=== PATIENT | male | born 1995 | race American Indian/Alaskan Native ===

== ENCOUNTER 2020-01-06 12:36 | Emergency (ER) | payer SELFPAY ==
--- NOTE | 2020-01-06 13:34 | RAD REPORT ---
EXAM DESCRIPTION: RAD - Hand Right 3 View - 01/06/2020 1:24 pm CLINICAL HISTORY: Pain;Swelling COMPARISON: No comparisons FINDINGS: An oblique fracture is present through the head of the fifth metacarpal. Fracture line abrams s involve the ulnar side of the MCP joint articular surface. Several small fracture fragments are pre sent along the main fracture line. There is radial side displacement of the distal fracture fragment. Minimal angulation deformity is present. Fifth digit phalanges are intact. No other fracture changes identifiable. No foreign body. IMPRESSION: Right fifth metacarpal fracture as detailed.
--- NOTE | 2020-01-06 13:35 | RAD REPORT ---
EXAM DESCRIPTION: CT - Head Brain Wo Cont - 01/06/2020 1:24 pm CLINICAL HISTORY: TRAUMAfall from ladder, head trauma COMPARISON: No comparisons TECHNIQUE: Axial 5 mm thick images of the head were obtained without IV contrast. All CT scans are performed using dose optimization technique as appropriate and may include automated exposure control or mA/KV adjustment according to patient size. FINDINGS: No intracranial hemorrhage, mass, edema or shift of mid-line structures. No acute infarcti on changes seen. No abnormal extra-axial fluid collections. Ventricles are normal. Mastoid air cells and visualized portions of the paranasal sinuses are clear. No acute bony findings. IMPRESSION: Negative non-contrast CT head examination.
--- NOTE | 2020-01-06 13:48 | EDPHYS ---
Physician Documentation [facility] Name: Estevan Melendez Age: 24 yrs Sex: Male : 1995 Arrival Date: 01/06/2020 Time: 12:39 Bed 14 Private MD: ED Physician Shaan Ngo HPI: 01/05 13:46 This 24 yrs old Other Male presents to ER via Ambulatory with complaints of Fall Injury.kb 13:46 Details of fall: The patient fell from a height, off a roof. Onset: The kb symptoms/episode began/occurred this morning. Associated injuries: The patient sustained injury to the head, hematoma, right hand, decreased range of motion, painful injury, swelling. Severity of symptoms: At their worst the symptoms were mild, moderate, in the emergency department the symptoms are unchanged. The patient has not experienced similar symptoms in the past. The patient has not recently seen a physician. Pt reports he fell off of a roof this morning and has pain, swelling and decreased ROM of right hand. Denies any other injury. States he did hit his head and had some dizziness at the time, but that is gone now. Historical: - Allergies: 13:15 No Known Allergies; iw - Home Meds: 13:15 None [Active]; iw - PMHx: 13:15 None; iw - PSHx: 13:15 right ankle; iw - Immunization history: Last tetanus immunization: unknown. - Social history:: Smoking status: Patient reports the use of cigarette tobacco products, smokes one-half pack cigarettes per day. ROS: 13:44 Constitutional: Negative for fever, chills, and weight loss, Neck: Negative for injury, kb pain, and swelling, Cardiovascular: Negative for chest pain, palpitations, and edema, Respiratory: Negative for shortness of breath, cough, wheezing, and pleuritic chest pain, Abdomen/GI: Negative for abdominal pain, nausea, vomiting, diarrhea, and constipation, Back: Negative for injury and pain, Neuro: Negative for headache, weakness, numbness, tingling, and seizure. 13:44 MS/extremity: Positive for injury or acute deformity, decreased range of motion, pain, swelling, tenderness, of the right hand. 13:44 Skin: Positive for hematoma, back of head. Exam: 13:44 Constitutional: This is a well developed, well nourished patient who is awake, alert, kb and in no acute distress. Eyes: Pupils equal round and reactive to light, extra-ocular motions intact. Lids and lashes normal. Conjunctiva and sclera are non-icteric and not injected. Cornea within normal limits. Periorbital areas with no swelling, redness, or edema. Chest/axilla: Normal chest wall appearance and motion. Nontender with no deformity. No lesions are appreciated. Cardiovascular: Regular rate and rhythm with a normal S1 and S2. No gallops, murmurs, or rubs. Normal PMI, no JVD. No pulse deficits. Respiratory: Lungs have equal breath sounds bilaterally, clear to auscultation and percussion. No rales, rhonchi or wheezes noted. No increased work of breathing, no retractions or nasal flaring. Abdomen/GI: Soft, non-tender, with normal bowel sounds. No distension or tympany. No guarding or rebound. No evidence of tenderness throughout. Skin: Warm, dry with normal turgor. Normal color with no rashes, no lesions, and no evidence of cellulitis. Neuro: Awake and alert, GCS 15, oriented to person, place, time, and situation. Cranial nerves II-XII grossly intact. Motor strength 5/5 in all extremities. Sensory grossly intact. Cerebellar exam normal. Normal gait. 13:44 Head/face: Noted is no obvious of injury or deformity except hematoma, that is mild, of the left occipital area. 13:44 Musculoskeletal/extremity: Extremities: grossly normal except: noted in the dorsum of right hand: decreased ROM, pain, swelling, tenderness, ROM: limited active range of motion, in the right hand, Circulation is intact in all extremities. Sensation intact. Vital Signs: 13:15 Resp 16; Weight 70.31 kg; Height 5 ft. 11 in. (180.34 cm); Pain 9/10; iw 13:29 BP 126 / 89; Pulse 76; Resp 19 S; Pulse Ox 97% on R/A; jl7 13:15 Body Mass Index 21.62 (70.31 kg, 180.34 cm) iw Ashley Coma Score: 13:15 Eye Response: spontaneous(4). Verbal Response: oriented(5). Motor Response: obeys iw commands(6). Total: 15. Trauma Score (Adult): 13:15 Eye Response: spontaneous(1); Verbal Response: oriented(1); Motor Response: obeys iw commands(2); Systolic BP: > 89 mm Hg(4); Respiratory Rate: 10 to 29 per min(4); Ashley Score: 15; Trauma Score: 12 MDM: 13:05 Patient medically screened. kb 13:44 Data reviewed: vital signs, nurses notes. Data interpreted: Pulse oximetry: on room air kb is 97 %. Interpretation: normal. Counseling: I had a detailed discussion with the patient and/or guardian regarding: the historical points, exam findings, and any diagnostic results supporting the discharge/admit diagnosis, radiology results, the need for outpatient follow up, a orthopedic surgeon, to return to the emergency department if symptoms worsen or persist or if there are any questions or concerns that arise at home. 01/05 13:07 Order name: CT Head Brain wo Cont; Complete Time: 13:44 kb 01/05 13:07 Order name: Hand Right 3 View XRAY; Complete Time: 13:44 kb 01/05 13:22 Order name: Ulnar Gutter splint; Complete Time: 14:08 kb Administered Medications: No medications were administered Disposition: 01/06 13:50 Co-signature as Attending Physician, Shaan Ngo MD I agree with the assessment and miracle plan of care. Disposition: 01/06/20 13:48 Discharged to Home. Impression: Displaced fracture of base of fifth metacarpal bone, right hand. - Condition is Stable. - Discharge Instructions: Metacarpal Fracture, [id number]. - Prescriptions for Diclofenac Sodium 75 mg Oral Tablet, Delayed Release (E.C.) - take 1 tablet by ORAL route 2 times per day As needed; 30 tablet. - Medication Reconciliation Form, Thank You Letter, Antibiotic Education, Prescription Opioid Use form. - Follow up: Emergency Department; When: As needed; Reason: Worsening of condition. Follow up: Private Physician; When: 2 - 3 days; Reason: Recheck today's complaints, Continuance of care, Re-evaluation by your physician. Signatures: Dispatcher [employer] EDIA Franci Malcolm FNP-C FNP-Ckb Anderson, Corey, MD MD cha Williams, Irene, RN RN iw Leal, Jahala, RN RN jl7 Corrections: (The following items were deleted from the chart) 01/05 14:10 13:48 01/06/2020 13:48 Discharged to Home. Impression: Displaced fracture of base of jl7 fifth metacarpal bone, right hand. Condition is Stable. Forms are Medication Reconciliation Form, Thank You Letter, Antibiotic Education, Prescription Opioid Use. Follow up: Emergency Department; When: As needed; Reason: Worsening of condition. Follow up: Private Physician; When: 2 - 3 days; Reason: Recheck today's complaints, Continuance of care, Re-evaluation by your physician. kb
--- NOTE | 2020-01-06 13:48 | ER ---
Nurse's Notes [facility] Name: Estevan Melendez Age: 24 yrs Sex: Male : 1995 Arrival Date: 01/06/2020 Time: 12:39 Bed 14 Private MD: Diagnosis: Displaced fracture of base of fifth metacarpal bone, right hand Presentation: 01/05 13:12 Chief complaint: Patient states: fall off ladder 20 feet at about 11 am today, fell iw onto right hand, has pain and swelling to hand, states he did hit his head but denies LOC, feels a bit dizzy, no other injuries noted. Care prior to arrival: None. Mechanism of Injury: Fall from ladder. Trauma event details: Injury occurred in the [facility]. 13:12 Acuity: TEODORA 4 iw 13:12 Method Of Arrival: Ambulatory iw 13:15 Coronavirus screen: Proceed with normal triage. Ebola Screen: Patient negative for iw fever greater than or equal to 101.5 degrees Fahrenheit, and additional compatible Ebola Virus Disease symptoms Patient denies exposure to infectious person. Patient denies travel to an Ebola-affected area in the 21 days before illness onset. No symptoms or risks identified at this time. Initial Sepsis Screen: Does the patient meet any 2 criteria? No. Patient's initial sepsis screen is negative. Does the patient have a suspected source of infection? No. Patient's initial sepsis screen is negative. Risk Assessment: Do you want to hurt yourself or someone else? Patient reports no desire to harm self or others. Onset of symptoms was January 06, 2020. Trauma Activation: Not Applicable Physician: ED Physician; Name: ; Notified At: ; Arrived At: Physician: General Surgeon; Name: ; Notified At: ; Arrived At: Physician: Radiology; Name: ; Notified At: ; Arrived At: Physician: Respiratory; Name: ; Notified At: ; Arrived At: Physician: Lab; Name: ; Notified At: ; Arrived At: Historical: - Allergies: 13:15 No Known Allergies; iw - Home Meds: 13:15 None [Active]; iw - PMHx: 13:15 None; iw - PSHx: 13:15 right ankle; iw - Immunization history: Last tetanus immunization: unknown. - Social history:: Smoking status: Patient reports the use of cigarette tobacco products, smokes one-half pack cigarettes per day. Screenin:33 Abuse screen: Denies threats or abuse. Denies injuries from another. Nutritional jl7 screening: No deficits noted. Tuberculosis screening: No symptoms or risk factors identified. 14:10 Fall Risk None identified. jl7 Assessment: 13:33 General: Appears in no apparent distress. uncomfortable, Behavior is calm, cooperative, jl7 appropriate for age. Pain: Complains of pain in right hand Pain currently is 9 out of 10 on a pain scale. Neuro: Level of Consciousness is awake, alert, obeys commands, Oriented to person, place, time, situation. Cardiovascular: Patient's skin is warm and dry. Respiratory: Airway is patent Respiratory effort is even, unlabored, Respiratory pattern is regular, symmetrical. Derm: Skin is pink, warm \T\ dry. Musculoskeletal: Swelling. Vital Signs: 13:15 Resp 16; Weight 70.31 kg; Height 5 ft. 11 in. (180.34 cm); Pain 9/10; iw 13:29 BP 126 / 89; Pulse 76; Resp 19 S; Pulse Ox 97% on R/A; jl7 13:15 Body Mass Index 21.62 (70.31 kg, 180.34 cm) iw Ashley Coma Score: 13:15 Eye Response: spontaneous(4). Verbal Response: oriented(5). Motor Response: obeys iw commands(6). Total: 15. Trauma Score (Adult): 13:15 Eye Response: spontaneous(1); Verbal Response: oriented(1); Motor Response: obeys iw commands(2); Systolic BP: > 89 mm Hg(4); Respiratory Rate: 10 to 29 per min(4); Ashley Score: 15; Trauma Score: 12 ED Course: 12:39 Patient arrived in ED. fj1 12:50 Franc[facility]C [facility] kb 12:50 Shaan Ngo MD is Attending Physician. kb 13:14 Triage completed. iw 13:16 Arm band placed on. iw 13:24 Adrian Giordano, PATRICIA is Primary Nurse. jl7 13:24 CT Head Brain wo Cont In Process Unspecified. EDMS 13:24 Hand Right 3 View XRAY In Process Unspecified. EDMS 13:33 Patient has correct armband on for positive identification. Bed in low position. Call jl7 light in reach. Side rails up X 1. Pulse ox on. NIBP on. 14:08 No provider procedures requiring assistance completed. Patient did not have IV access jl7 during this emergency room visit. Administered Medications: No medications were administered Outcome: 13:48 Discharge ordered by . silvana 14:08 Discharged to home ambulatory. jl7 14:08 Condition: stable 14:08 Discharge instructions given to patient, Instructed on discharge instructions, follow up and referral plans. medication usage, splint care Demonstrated understanding of instructions, follow-up care, medications, splint care, Prescriptions given X 1. 14:10 Patient left the ED. jl7 Signatures: Dispatcher [employer] EDMS Franci Malcolm, SCOOTER-Federica NASSARP-Patti Howard, RN RN iw Adrian Giordano RN RN jl7 Nakul Trejo fj1
[2020-01-06 14:18] VITALS: BP 126/89; O2SAT 97
== END 2020-01-06 14:10 | disposition home or self-care (01) ==
LOC: ER 12:36
PROC: 2W3CX1Z Immobilization of Right Lower Arm using Splint (ICD-10-PCS; principal; 2020-01-06)
DX: S62.316A Displaced fracture of base of fifth metacarpal bone, right hand, initial encounter for closed fracture (principal); F17.210 Nicotine dependence, cigarettes, uncomplicated; W13.2XXA Fall from, out of or through roof, initial encounter; Y93.9 Activity, unspecified; Y92.9 Unspecified place or not applicable
CPT/HCPCS: 70450; 99283